=== PATIENT | female | born 1980 | race Two or more races ===

== ENCOUNTER 2020-02-09 23:35 | Emergency (ER) | payer MEDICAID, OTHER ==
[~2020-02-09] VITALS: Ht 167.6 cm; Wt 63.5 kg
[2020-02-10] MEDS ORDERED: HYDROcodone-ACET 5/325MG TAB PO ONE (00:30)
[2020-02-10 05:07] VITALS: BP 123/52
== END 2020-02-10 07:13 | disposition home or self-care (01) ==
LOC: ER 23:35 → EDBD 23:35 → ER 02-10 07:13
DX: S02.2XXA Fracture of nasal bones, initial encounter for closed fracture (principal); S16.1XXA Strain of muscle, fascia and tendon at neck level, initial encounter; S00.83XA Contusion of other part of head, initial encounter; R51.9 Headache, unspecified; Z88.0 Allergy status to penicillin; Y08.89XA Assault by other specified means, initial encounter; Y93.89 Activity, other specified; Y92.89 Other specified places as the place of occurrence of the external cause; Y99.8 Other external cause status
CPT/HCPCS: 70450; 70486; 72125; 81025